=== PATIENT | male | born 1980 | race Caucasian/White ===

== ENCOUNTER 2021-05-25 10:21 | Emergency (ER) | payer OTHER ==
[~2021-05-25] VITALS: Ht 152.4 cm; Wt 81.7 kg
[~2021-05-25 10:21] MED LIST: TRILEPTAL150 MG; XANAX 0.5 MG0.5 MG; ZOFRAN ODT4 MG PO
[2021-05-25] MEDS ORDERED: NAPROSYN500 M1 PO (10:45)
[2021-05-25] MEDS ORDERED: FLEXERIL PO (10:45)
[2021-05-25 12:05] VITALS: BP 111/73
== END 2021-05-25 12:05 | disposition home or self-care (01) ==
LOC: M.ERS 10:21
DX: R51.9 Headache, unspecified (principal)